=== PATIENT | male | born 1950 | race Caucasian/White ===

== ENCOUNTER 2016-11-22 19:29 | Emergency (ER) | payer OTHER ==
--- NOTE | 2016-11-22 20:03 | EDPHY ---
H & P Stated Complaint: Pain R hip/groin area, swelling Time Seen by Provider: 11/22/16 20:03 - Personal History Current Tetanus/Diphtheria Vaccine: Yes Current Tetanus Diphtheria and Acellular Pertussis (TDAP): Yes Tetanus Vaccine Date: 2008 - Medical/Surgical History Hx Asthma: No Hx Chronic Respiratory Disease: No Hx Cardiac Disease: No Hx Renal Disease: No Hx Cirrhosis: No Hx Alcoholism: No Hx HIV/AIDS: No Hx Splenectomy or Spleen Trauma: No Other PMH: GERD - Social History Smoking Status: Never smoked Constitutional: Initial Vital Signs Temperature (C) 36.8 C 11/22/16 19:32 Heart Rate 65 11/22/16 19:32 Respiratory Rate 16 11/22/16 19:32 Blood Pressure 143/91 H 11/22/16 19:32 O2 Sat (%) 97 11/22/16 19:32 O2 Delivery Mode Room Air Allergies/Adverse Reactions: No Known Allergies Allergy (Unverified 02/25/13 15:57) Home Medications: Medication Instructions Recorded Cholecalciferol Vit D3 [Vitamin D3 800 units PO DAILY 02/25/13 400 units (OTC)] [place]-3 Fatty Acids/Fish Oil [Fish 1 each PO DAILY 02/25/13 Oil 1,200 mg Softgel] Omeprazole 40 mg PO 02/25/13 Pharmacy Completed 02/25/13 02/25/13 Medical Decision Making ED Course/Re-evaluation: CHIEF COMPLAINT: "A pain in my abdomen I was wondering if it was a hernia" HISTORY OF PRESENT ILLNESS: The patient is a 66 y/o male arriving with his complaining of right-sided "burning" groin pain that he thinks may be a hernia. He developed pain initially about 1 week ago and noticed it was aggravated slightly by heavy lifting and bowel movements. His pain worsened significantly after a long bike ride today and he thinks there is a bulge around his right lower abdomen and groin region. He denies nausea, vomiting, abnormal bowel movements, testicular pain, or fever. He has no prior history of hernia or abdominal surgeries. REVIEW OF SYSTEMS: A 10 point review of systems was performed and is negative with the exception of the elements mentioned in the history of present illness. PHYSICAL EXAM: HR, BP, O2 Sat, RR. Temp noted General Appearance: Alert, well hydrated, appropriate, and non-toxic appearing. Head: Atraumatic without scalp tenderness or obvious injury Eyes: Pupils equal, round, reactive to light and accommodation, EOMI, no trauma , no injection. Ears: Clear bilaterally, no perforation, normal landmarks Nose: Atraumatic, no rhinorrhea, clear. Throat: There is no erythema or exudates, no lesions, normal tonsils, mucus membranes moist. Neck: Supple, nontender, no lymphadenopathy. Respiratory: No retractions, no distress, no wheezes, and no accessory muscle use. Lungs are clear to auscultation bilaterally. Cardiovascular: Regular rate and rhythm, no murmurs, rubs, or gallops. Good capillary refill all extremities. Gastrointestinal: Abdomen is soft, nontender, non-distended, no masses, no rebound, no guarding, no peritoneal signs. Musculoskeletal: Normal active ROM of all extremities, atraumatic. Neurological: Alert, appropriate, and interactive. The patient has normal DTRs and non-focal cranial nerves, motor, sensory, and cerebellar exam. Skin: No rashes, good turgor, no nodules on palpation. Past medical history: GERD Past surgical history: denies Family history: noncontributory Social history: at bedside DIAGNOSTICS/PROCEDURES/CRITICAL CARE TIME: Study: Ultrasound of the: right inguinal region Indication: Pain Results: US scan of the abdomen was obtained. The results of the study are non- incarcerated inguinal or possibly femoral hernia on right side. The study was read by the radiologist, Dr. Gilman. I viewed the images myself on the PACS system. DIFFERENTIAL DIAGNOSIS: The differential diagnosis for the patient's abdominal pain included but was not limited to appendicitis, cholecystitis, hernias, testicular torsion, gastritis, and urinary tract infection. MEDICAL DECISION MAKING: This is a healthy 66 y/o male presenting with a 1-week history of right groin pain that worsened today after a bike ride. He has no associated symptoms. His abdomen is benign. I cannot identify the bulging area the patient described nor illicit his pain. Plan for ultrasound to rule out hernia. US shows inguinal or femoral hernia. No evidence of incarceration or strangulation. Patient will be discharged with referral to surgeon and directions to follow up with him in the next few days. Strict return precautions given. Departure - Departure Disposition: Home, Routine, Self-Care Clinical Impression: Hernia, without obstruction Condition: Good Instructions: Inguinal Hernia (ED) Additional Instructions: Follow up with Dr. Bradley, surgeon, in 1-2 days for further evaluation. Return to the ED for any worsening of condition. Referrals: DA BAIRES [Primary Care Provider] - As per Instructions Andrei Bradley MD [Medical Doctor] - As per Instructions Report Scribed for: Devon Valentin Report Scribed by: Lotus Tyler Date of Report: 11/22/16 Time of Report: 20:35
[2016-11-22 21:47] VITALS: BP 142/96; PULSE 60; TEMP 97.9; O2SAT 94
[2016-11-22 21:59] VITALS: RESP 16
== END 2016-11-22 21:58 | disposition home or self-care (01) ==
DX: K46.9 Unspecified abdominal hernia without obstruction or gangrene (principal)